=== PATIENT | female | born 1930 | race Caucasian/White ===

== ENCOUNTER → 2016-06-01 | Outpatient (CLI) | payer OTHER ==
--- NOTE | 2016-06-01 10:18 | MA ---
Screening Digital Mammogram With Tomosynthesis Clinical Indications: Routine screening. Comparison: Mammograms May 30, 2015, May 28, 2014, May 26, 2013, May 25, 2012, [facility] er 2010, May 09, 2010. Technique: Standard cephalocaudal projections are obtained. Digital breast tomosynthesis was performe d in the MLO projection with reconstruction at 1.0 mm slice thickness and composite MLO views reconst ructed. This examination is processed by the [employer] computer aided detection system. Breast density: Type C: The breast tissue is heterogeneously dense, which may obscure small masses. Findings: CAD was reviewed. No suspicious calcifications, masses, or areas of architectural distorti on are identified. Heterogeneously dense breast parenchyma reduces sensitivity for noncalcified mass es. Impression: Negative mammogram. BI-RADS 1. Recommendation: Routine screening is recommended in one year, as long as physical examination is natalie ign in this patient with moderately dense breast parenchyma. [facility] will send a result letter to the patient. Negative mammography should not preclude additional workup of a clinically suspicious finding. The patient's information is entered into a reminder system with a target due date for her next mammo gram.
== END ==
LOC: FIMAGING 09:33
DX: Z12.31 Encounter for screening mammogram for malignant neoplasm of breast (principal)
CPT/HCPCS: G0202

== ENCOUNTER → 2017-01-29 | Outpatient (CLI) | payer OTHER | LOC: FIMAGING 09:53 | PROVIDERS: ATTEND Family Medicine | DX: J84.10 Pulmonary fibrosis, unspecified (principal); R53.81 Other malaise; R53.83 Other fatigue; R05 Cough; Z79.899 Other long term (current) drug therapy ==

== ENCOUNTER → 2017-06-05 | Outpatient (CLI) | payer OTHER | LOC: FIMAGING 10:10 | PROVIDERS: ATTEND Family Medicine | DX: Z12.31 Encounter for screening mammogram for malignant neoplasm of breast (principal) ==

== ENCOUNTER → 2018-06-05 | Outpatient (CLI) | payer OTHER | LOC: FIMAGING 12:16 | PROVIDERS: ATTEND Family Medicine | DX: M41.86 Other forms of scoliosis, lumbar region (principal); S22.080A Wedge compression fracture of T11-T12 vertebra, initial encounter for closed fracture ==

== ENCOUNTER → 2018-07-07 | Outpatient (CLI) | payer OTHER | LOC: FIMAGING 11:05 | PROVIDERS: ATTEND Family Medicine | DX: Z12.31 Encounter for screening mammogram for malignant neoplasm of breast (principal) ==